=== PATIENT | female | born 1980 ===

== ENCOUNTER 2018-05-23 06:19 | Inpatient (IN) | payer OTHER ==
[~2018-05-23] VITALS: Ht 157.5 cm; Wt 64.0 kg
[2018-05-25] MEDS ORDERED: Tylenol #3 PO (08:50)
== END 2018-05-25 16:17 | disposition home or self-care (01) | DRG 807 ==
LOC: LDR 06:19 → OB/GYN 13:51
PROVIDERS: ADMIT Obstetrics & Gynecology
PROC: 10E0XZZ Delivery of Products of Conception, External Approach (ICD-10-PCS; principal; 2018-05-23)
PROC: 0HQ9XZZ Repair Perineum Skin, External Approach (ICD-10-PCS; 2018-05-23)
PROC: 3E033VJ Introduction of Other Hormone into Peripheral Vein, Percutaneous Approach (ICD-10-PCS; 2018-05-23)
PROC: 10907ZC Drainage of Amniotic Fluid, Therapeutic from Products of Conception, Via Natural or Artificial Opening (ICD-10-PCS; 2018-05-23)
PROC: 4A1HXCZ Monitoring of Products of Conception, Cardiac Rate, External Approach (ICD-10-PCS; 2018-05-23)
DX: O70.0 First degree perineal laceration during delivery (principal); Z37.0 Single live birth; Z3A.38 38 weeks gestation of pregnancy

== ENCOUNTER 2018-05-30 18:51 | Emergency (ER) | payer OTHER ==
[~2018-05-30] VITALS: Ht 154.9 cm; Wt 59.0 kg
[~2018-05-30 18:51] MED LIST: Tylenol #3 PO
== END 2018-05-30 21:51 | disposition home or self-care (01) ==
LOC: ER 18:51
DX: B34.9 Viral infection, unspecified (principal)